=== PATIENT | female | born 1960 | race Caucasian/White ===

== ENCOUNTER → 2016-10-13 | Outpatient (CLI) | payer BC ==
--- NOTE | 2016-10-25 11:28 | MM ---
Reason for exam: screening (asymptomatic). Last mammogram was performed 4 years and 3 months ago. History: Took hormonal contraceptives beginning at age 19. Physical Findings: A clinical breast exam by your physician is recommended on an annual basis and results should be correlated with mammographic findings. MG Screening Mammo w CAD Bilateral CC and MLO view(s) were taken. Prior study comparison: June 30, 2012, mammogram, performed at [facility]. September 10, 2010, mammogram, performed at [facility]. There are scattered fibroglandular densities. There is no discrete abnormality. ASSESSMENT: Negative, BI-RAD 1 RECOMMENDATION: Routine screening mammogram of both breasts in 1 year.
== END | disposition home or self-care (01) ==
LOC: RADMAMWWP 13:37
PROVIDERS: ATTEND Nurse Practitioner Family
DX: Z12.31 Encounter for screening mammogram for malignant neoplasm of breast (principal)

== ENCOUNTER → 2018-02-21 | Outpatient (CLI) | payer BC ==
--- NOTE | 2018-02-21 10:43 | BD ---
EXAMINATION TYPE: Axial Bone Density DATE OF EXAM: 02/21/2018 COMPARISON: NONE CLINICAL HISTORY: Postmenopausal female. Osteoporosis screening. Height: 62.7 IN Weight: 222 LBS RISK FACTORS HISTORY OF: Active: YES MEDICATIONS: Additional Medications: VIT D, LEXAPRO, WELLBUTRIN, MULTI VIT EXAM MEASUREMENTS: Bone mineral densitometry was performed using the [employer] System. Bone mineral density as measured about the Lumbar spine is: ----- L1-L4(G/cm2): 1.353 T Score Values are as follows: ----- L2: 0.5 ----- L3: 1.9 ----- L4: 1.9 ----- L1-L4: 1.4 Bone mineral density BASELINE Bone mineral density about the R hip (g/cm2): 0.780 Bone mineral density about the L hip (g/cm2): 0.727 T Score values are as follows: -----R Neck: -1.9 -----L Neck: -2.2 -----R Total: -0.8 -----L Total: -1.0 Bone mineral density BASELINE IMPRESSION: Osteopenia (T Score between -2.5 and -1). There is slightly increased risk of fracture and the patient may be considered for treatment. Re-Screen 2-5 years. NOTE: T-SCORE=SD OF THE YOUNG ADULT MEAN.
--- NOTE | 2018-02-23 08:03 | MM ---
Reason for exam: screening (asymptomatic). Last mammogram was performed 1 year and 4 months ago. History: Patient is postmenopausal. Took hormonal contraceptives beginning at age 19. Physical Findings: A clinical breast exam by your physician is recommended on an annual basis and results should be correlated with mammographic findings. MG Screening Mammo w CAD Bilateral CC and MLO view(s) were taken. Prior study comparison: October 13, 2016, bilateral MG screening mammo w CAD. June 30, 2012, mammogram, performed at [facility]. There are scattered fibroglandular densities. No suspicious abnormality. No significant changes when compared with prior studies. ASSESSMENT: Negative, BI-RAD 1 RECOMMENDATION: Routine screening mammogram of both breasts in 1 year.
== END | disposition home or self-care (01) ==
LOC: RADMAMWWP 07:50
PROVIDERS: ATTEND Family Medicine
DX: Z12.31 Encounter for screening mammogram for malignant neoplasm of breast (principal); M85.80 Other specified disorders of bone density and structure, unspecified site
CPT/HCPCS: 77067; 77080

== ENCOUNTER 2018-03-29 09:32 | Day surgery (SDC) | payer BC ==
[2018-03-27 16:07] VITALS: BMI 41.3
--- NOTE | 2018-03-29 07:57 | P.GSHP ---
History of Present Illness H&P Date: 03/29/18 CHIEF COMPLAINT: GERD and colon screen HISTORY OF PRESENT ILLNESS: The patient is a 57-year-old female who presents with gastroesophageal reflux disease and need for colon screen. Upper and lower endoscopy were offered for further evaluation and management. PAST MEDICAL HISTORY: Please see list. PAST SURGICAL HISTORY: Please see list. MEDICATIONS: Please see list. ALLERGIES: Please see list. SOCIAL HISTORY: No illicit drug use FAMILY HISTORY: No reports of Crohn disease or ulcerative colitis. REVIEW OF ORGAN SYSTEMS: CONSTITUTIONAL: No reports of fevers or chills. GI: Denies any blood in stools or constipation. PHYSICAL EXAM: VITAL SIGNS: Stable GENERAL: Well-developed pleasant in no acute distress. HEENT: No scleral icterus. Extraocular movements grossly intact. Moist buccal mucosa. NECK: Supple without lymphadenopathy. CHEST: Unlabored respirations. Equal bilateral excursions. CARDIOVASCULAR: Regular rate and rhythm. Distal 2+ pulses. ABDOMEN: Soft, nondistended. MUSCULOSKELETAL: No clubbing, cyanosis, or edema. ASSESSMENT: 1. Gastroesophageal reflux disease 2. Colon screen. PLAN: 1. Recommend proceeding with an upper and lower endoscopy Past Medical History Past Medical History: GERD/Reflux, Hypertension, Osteoarthritis (OA), Sleep Apnea/CPAP/BIPAP Additional Past Medical History / Comment(s): HX: H. Pylori, iron deficiency anemia (HX OF IRON TRANSFUSIONS), SEASONAL ALLERGIES, USES C-PAP MACHINE, PAST HX OF HTN (NO CURRENT MEDS), BACK PAIN, ARTHRITIS NECK, JOINT PAIN. History of Any Multi-Drug Resistant Organisms: None Reported Past Surgical History: Bariatric Surgery, Cholecystectomy, Uterine Ablation Additional Past Surgical History / Comment(s): 07/07/15 Lap Naima-En-Y gastric bypass with EGD and Excision benign lesion abdominal wall. , lap band 2006, band removed 04/04/2015, LEFT rotator cuff surgery. Past Anesthesia/Blood Transfusion Reactions: Family History of Problems w/ Anesthesia, Motion Sickness, Postoperative Nausea & Vomiting (PONV) Additional Past Anesthesia/Blood Transfusion Reaction / Comment(s): Pt has recieved blood before without reaction. daughter= ponv Past Psychological History: Anxiety, Depression Additional Psychological History / Comment(s): . Smoking Status: Never smoker Past Alcohol Use History: None Reported Past Drug Use History: None Reported - Past Family History Mother Family Medical History: Deep Vein Thrombosis (DVT) Additional Family Medical History / Comment(s): RYGB done and from pneumonia after procedure at age 51, Father Family Medical History: Cancer Additional Family Medical History / Comment(s): Father of skin cancer at the age of 72 Medications and Allergies Home Medications Medication Instructions Recorded Confirmed Type Ergocalciferol [Vitamin D2 50,000 unit PO Q7D #12 cap 06/04/16 03/27/18 Rx (DRISDOL)] Escitalopram [Lexapro] 20 mg PO DAILY 03/27/18 03/27/18 History Ibuprofen [Motrin Ib] 400 mg PO DIRECTED PRN 03/27/18 03/27/18 History buPROPion HCL [Wellbutrin SR] 200 mg PO BID 03/27/18 03/27/18 History Allergies Allergy/AdvReac Type Severity Reaction Status Date / Time No Known Allergies Allergy Verified 03/27/18 15:44
[~2018-03-29 09:32] MED LIST: LACTATED RINGERS 1,000 ML IV SCH; LIDOCAINE 1% 20 ML VIAL (10MG/ML) FOR IV START INTRADERMA PRN; MIDAZOLAM 2 MG/2 ML VIAL IV PRN
[2018-03-29] MEDS ORDERED: LIDOCAINE 1% INJ 10MG/ML (20 ML MDV) ONE (12:15)
[2018-03-29] MEDS ORDERED: PROPOFOL 10 MG/ML 20 ML VIAL IV ONE (12:15)
[2018-03-29 12:16] VITALS: TEMP 98.7
--- NOTE | 2018-03-29 12:28 | P.PCN ---
Date of Procedure: 03/29/18 Description of Procedure: PREOPERATIVE DIAGNOSES: 1. History of gastric bypass 2. Gastroesophageal reflux disease POSTOPERATIVE DIAGNOSES: 1. History of gastric bypass 2. Gastroesophageal reflux disease PROCEDURE PERFORMED: Esophagogastrojejunoscopy. SURGEON: Jaja Stiles MD ANESTHESIA: MAC. INDICATIONS: The patient is a 57-year-old male with prior history of Naima-en-Y gastric bypass. With her history of Naima-en-Y gastric bypass, upper endoscopy was offered for further evaluation and management. DESCRIPTION: Patient was brought to the endoscopy suite and laid in the left lateral decubitus position. After adequate IV sedation, a bite block was placed. An Olympus gastroscope was passed along the posterior oropharynx down to the distal esophagus where the squamocolumnar junction was found at approximately 38 cm from the incisors. His anastomosis was found at 42 cm, consistent with approximately 5 cm gastric pouch. The scope was advanced 60 cm from the incisors. No evidence of foreign body was found. No evidence of active gastrojejunal ulcerations were encountered. The GI tract was desufflated. The patient tolerated the procedure well. FINDINGS: 1. No acute gastrojejunal ulceration. 2. No foreign body found along the anastomosis. PLAN: 1. Recommend upper endoscopy as needed.
--- NOTE | 2018-03-29 12:42 | P.PCN ---
Date of Procedure: 03/29/18 Description of Procedure: PREOPERATIVE DIAGNOSIS: Personal history of colon polyp POSTOPERATIVE DIAGNOSIS: Personal history of colon polyp OPERATION: Colonoscopy to the ileocecal valve and appendiceal orifice. SURGEON: Jaja Stiles MD. ANESTHESIA: MAC. INDICATIONS: The patient is a 57-year-old female who presents for colonoscopy screening. Last colonoscopy was 5 years ago. She has history of polyps. Benefits and risks were described and informed consent was obtained. DESCRIPTION OF PROCEDURE: The patient had undergone Gatorade, MiraLAX and Dulcolax prep. She had been brought into the operating room and laid in the left lateral decubitus position. After adequate intravenous sedation, the rectum was examined with 2% lidocaine jelly. External hemorrhoids were encountered. The rectal tone was within normal limits. No lesions were palpated in the rectal vault. An Olympus colonoscope was advanced until the ileocecal valve and appendiceal orifice were clearly viewed. The prep was excellent with clear visualization of the mucosal folds. The scope was removed with visualization of each mucosal fold. No scattered diverticulosis was encountered. No colonic polyps were found. No evidence of focal colitis was found. Retroflexion of the scope demonstrated no internal hemorrhoids without active bleeding or inflammation. The colon was desufflated. The patient had tolerated the procedure well. Withdrawal time was over 6 minutes. FINDINGS: No internal hemorrhoids External prolapsed hemorrhoids. No arteriovenous malformations. No adenomatous polyps. No sigmoid diverticulosis No focal colitis. RECOMMENDATIONS: Lower endoscopy in 5 years, 2022 Plan - Discharge Summary New Discharge Prescriptions: No Action Ergocalciferol [Vitamin D2 (DRISDOL)] 50,000 unit PO Q7D #12 cap buPROPion HCL [Wellbutrin SR] 200 mg PO BID Escitalopram [Lexapro] 20 mg PO DAILY Ibuprofen [Motrin Ib] 400 mg PO DIRECTED PRN PRN Reason: Pain Discharge Medication List Ergocalciferol [Vitamin D2 (DRISDOL)] 50,000 unit PO Q7D #12 cap 06/04/16 [Rx] Escitalopram [Lexapro] 20 mg PO DAILY 03/27/18 [History] Ibuprofen [Motrin Ib] 400 mg PO DIRECTED PRN 03/27/18 [History] buPROPion HCL [Wellbutrin SR] 200 mg PO BID 03/27/18 [History]
[2018-03-29 13:04] VITALS: BP 133/88; PULSE 67; RESP 16
== END 2018-03-29 13:20 | disposition home or self-care (01) ==
LOC: ORWHC2ENDO 09:32
PROVIDERS: ATTEND Surgery Plastic and Reconstructive Surgery
DX: Z12.11 Encounter for screening for malignant neoplasm of colon (principal); K64.8 Other hemorrhoids; Z86.010 Personal history of colon polyps; Z98.84 Bariatric surgery status; K21.9 Gastro-esophageal reflux disease without esophagitis; I10 Essential (primary) hypertension; M19.90 Unspecified osteoarthritis, unspecified site; G47.33 Obstructive sleep apnea (adult) (pediatric); Z99.89 Dependence on other enabling machines and devices; F41.9 Anxiety disorder, unspecified; F32.9 Major depressive disorder, single episode, unspecified
CPT/HCPCS: 43235; J2001; J2704; G0105

== ENCOUNTER 2018-05-19 16:36 | Emergency (ER) | payer BC ==
[2018-05-19 16:38] VITALS: BP 154/86; PULSE 77; RESP 18; TEMP 97.6
[2018-05-19] MEDS ORDERED: SODIUM CHLORIDE 0.9% 1,000 ML IV STA (16:42)
--- NOTE | 2018-05-19 16:54 | ED ---
General Adult HPI - General Chief complaint: Shortness of Breath Stated complaint: Chest pain Time Seen by Provider: 05/19/18 16:42 Source: patient, RN notes reviewed, old records reviewed Mode of arrival: ambulatory Limitations: no limitations - History of Present Illness Initial comments: This is a 49-year-old female the ER for evaluation. Patient resents today for evaluation regarding palpitations and shortness of breath. Patient has had shortness of breath for long-standing. She was seen in her doctor's office today and sent to ER for evaluation. Medical history includes hypertension. No recent travel history no sick contacts no fevers cough or congestion. Patient denies current shortness of breath or chest pain. A she is currently without complaint. - Related Data Home Medications Medication Instructions Recorded Confirmed buPROPion [Wellbutrin] 150 mg PO BID 05/19/18 05/19/18 Allergies Allergy/AdvReac Type Severity Reaction Status Date / Time No Known Allergies Allergy Verified 05/19/18 16:43 Review of Systems ROS Statement: Those systems with pertinent positive or pertinent negative responses have been documented in the HPI. ROS Other: All systems not noted in ROS Statement are negative. Past Medical History Past Medical History: GERD/Reflux, Hypertension, Osteoarthritis (OA), Sleep Apnea/CPAP/BIPAP Additional Past Medical History / Comment(s): HX: H. Pylori, iron deficiency anemia (HX OF IRON TRANSFUSIONS), SEASONAL ALLERGIES, USES C-PAP MACHINE, PAST HX OF HTN (NO CURRENT MEDS), BACK PAIN, ARTHRITIS NECK, JOINT PAIN. History of Any Multi-Drug Resistant Organisms: None Reported Past Surgical History: Bariatric Surgery, Cholecystectomy, Uterine Ablation Additional Past Surgical History / Comment(s): 07/07/15 Lap Naima-En-Y gastric bypass with EGD and Excision benign lesion abdominal wall. , lap band 2006, band removed 04/04/2015, LEFT rotator cuff surgery. Past Anesthesia/Blood Transfusion Reactions: Family History of Problems w/ Anesthesia, Motion Sickness, Postoperative Nausea & Vomiting (PONV) Additional Past Anesthesia/Blood Transfusion Reaction / Comment(s): Pt has recieved blood before without reaction. daughter= ponv Past Psychological History: Anxiety, Depression Smoking Status: Never smoker Past Alcohol Use History: None Reported Past Drug Use History: None Reported - Past Family History Mother Family Medical History: Deep Vein Thrombosis (DVT) Additional Family Medical History / Comment(s): RYGB done and from pneumonia after procedure at age 51, Father Family Medical History: Cancer Additional Family Medical History / Comment(s): Father of skin cancer at the age of 72 General Exam Limitations: no limitations General appearance: alert, in no apparent distress Head exam: Present: atraumatic, normocephalic, normal inspection Eye exam: Present: normal appearance, PERRL, EOMI. Absent: scleral icterus, conjunctival injection, periorbital swelling ENT exam: Present: normal exam, mucous membranes moist Neck exam: Present: normal inspection. Absent: tenderness, meningismus, lymphadenopathy Respiratory exam: Present: normal lung sounds bilaterally. Absent: respiratory distress, wheezes, rales, rhonchi, stridor Cardiovascular Exam: Present: regular rate, normal rhythm, normal heart sounds. Absent: systolic murmur, diastolic murmur, rubs, gallop, clicks GI/Abdominal exam: Present: soft, normal bowel sounds. Absent: distended, tenderness, guarding, rebound, rigid Extremities exam: Present: normal inspection, full ROM, normal capillary refill. Absent: tenderness, pedal edema, joint swelling, calf tenderness Back exam: Present: normal inspection Neurological exam: Present: alert, oriented X3, CN II-XII intact Psychiatric exam: Present: normal affect, normal mood Skin exam: Present: warm, dry, intact, normal color. Absent: rash Course Vital Signs 05/19/18 16:36 Temperature 97.6 F Pulse Rate 77 Respiratory 18 Rate Blood Pressure 154/86 O2 Sat by Pulse 99 Oximetry - Reevaluation(s) Reevaluation #1: 05/19/18 17:52 Using x-ray, patient is refusing further testing, patient would like to be discharged home EKG Findings - EKG Comments: EKG Findings:: EKG shows NSR 76 VA 164 QRS 88 QTC 454 Medical Decision Making - Medical Decision Making 57 female the ER with palpitations sent from doctor's office, patient currently asymptomatic no chest pain or shortness of breath. States she saw her doctor for shortness of breath today. Patient's refusing to wait for lab values here at this time, she refuses x-ray and would like to be discharged home - Lab Data Result diagrams: 05/19/18 17:07 Lab Results 05/19/18 Range/Units 17:07 WBC 6.8 (3.8-10.6) k/uL RBC 5.06 (3.80-5.40) m/uL Hgb 14.6 (11.4-16.0) gm/dL Hct 44.4 (34.0-46.0) % MCV 87.7 (80.0-100.0) fL MCH 28.8 (25.0-35.0) pg MCHC 32.8 (31.0-37.0) g/dL RDW 13.7 (11.5-15.5) % Plt Count 211 (150-450) k/uL Neutrophils % 58 % Lymphocytes % 30 % Monocytes % 6 % Eosinophils % 4 % Basophils % 1 % Neutrophils # 3.9 (1.3-7.7) k/uL Lymphocytes # 2.0 (1.0-4.8) k/uL Monocytes # 0.4 (0-1.0) k/uL Eosinophils # 0.3 (0-0.7) k/uL Basophils # 0.1 (0-0.2) k/uL Disposition Clinical Impression: Palpitations Disposition: HOME SELF-CARE Condition: Good Instructions: Heart Palpitations (ED) Is patient prescribed a controlled substance at d/c from ED?: No Referrals: Cat Dougherty III, MD [Primary Care Provider] - 1-2 days
[2018-05-19 17:46] LABS: Basophils # (A) 0.1 k/uL (0-0.2); Basophils % (A) 1 %; Eosinophils # (A) 0.3 k/uL (0-0.7); Eosinophils % (A) 4 %; HCT 44.4 % (34.0-46.0); HGB 14.6 gm/dL (11.4-16.0); Lymphocytes % (A) 30 %; MCH 28.8 pg (25.0-35.0); MCHC 32.8 g/dL (31.0-37.0); MCV 87.7 fL (80.0-100.0); Mean Platelet Volume 7.9; Monocytes # (A) 0.4 k/uL (0-1.0); Monocytes % (A) 6 %; Neutrophils # (A) 3.9 k/uL (1.3-7.7); Neutrophils % (A) 58 %; Platelet Count 211 k/uL (150-450); RBC 5.06 m/uL (3.80-5.40); RDW 13.7 % (11.5-15.5); WBC 6.8 k/uL (3.8-10.6)
[2018-05-19 18:03] LABS: Partial Thromboplastin Time 22.5 sec (22.0-30.0); Prothrombin Time 9.5 sec (9.0-12.0)
[2018-05-19 18:05] LABS: ALT 37 U/L (9-52); AST 44 U/L (14-36); Albumin 3.8 g/dL (3.5-5.0); Alkaline Phosphatase 79 U/L (38-126); Anion Gap 9 mmol/L; Blood Urea Nitrogen 10 mg/dL (7-17); Calcium 9.4 mg/dL (8.4-10.2); Carbon Dioxide 23 mmol/L (22-30); Chloride 109 mmol/L (98-107); Glucose 93 mg/dL (74-99); Magnesium 2.2 mg/dL (1.6-2.3); Phosphorus 3.9 mg/dL (2.5-4.5); Potassium 4.1 mmol/L (3.5-5.1); Sodium 141 mmol/L (137-145); Total Bilirubin 0.5 mg/dL (0.2-1.3); Total Protein 6.2 g/dL (6.3-8.2)
[2018-05-19 18:11] LABS: Creatine Kinase 72 U/L (30-135)
[2018-05-19 18:24] LABS: Creatine Kinase MB 1.1 ng/mL (0.0-2.4); Troponin I <0.012 ng/mL (0.000-0.034)
== END 2018-05-19 18:05 | disposition home or self-care (01) ==
LOC: EC 16:36
DX: R00.2 Palpitations (principal); F32.9 Major depressive disorder, single episode, unspecified; D50.9 Iron deficiency anemia, unspecified; G47.30 Sleep apnea, unspecified; Z79.899 Other long term (current) drug therapy; Z99.89 Dependence on other enabling machines and devices
CPT/HCPCS: 36415; 80053; 82550; 82553; 83735; 84100; 84443; 84484; 85025; 85610; 85730; 93005; 96360; 99285

== ENCOUNTER 2018-08-12 14:02 | Emergency (ER) | payer BC ==
[2018-08-12 14:09] VITALS: RESP 18
[2018-08-12] MEDS ORDERED: SODIUM CHLORIDE 0.9% 1,000 ML IV STA (14:42)
--- NOTE | 2018-08-12 14:52 | ED ---
General Adult HPI - General Chief complaint: Syncope Stated complaint: SYNCOPAL EPISODE Time Seen by Provider: 08/12/18 14:05 Source: EMS, RN notes reviewed Mode of arrival: EMS Limitations: no limitations - History of Present Illness Initial comments: This is a 57-year-old female who presents emergency Department with a past medical history significant for high blood pressure. Patient states she gave plasma this morning and about 2 hours later she was in the store getting very hot with her coat on and she states was very crowded she felt a little lightheaded and next thing she knows people were crowded around her. Patient states she never had any chest pain never had any difficulty breathing or shortness of breath. Patient denies any recent fever chills or cough. Patient states she had no palpitations. Patient states she's given plasma before not had any problems. Patient denies any abdominal pain patient denies nausea vomiting diarrhea. Patient denies being a headache currently. - Related Data Home Medications Medication Instructions Recorded Confirmed Multivitamins, Thera [Multivitamin 1 tab PO DAILY 08/12/18 08/12/18 (formulary)] OXcarbazepine [Trileptal] 300 mg PO BID 08/12/18 08/12/18 Sertraline [Zoloft] 100 mg PO DAILY 08/12/18 08/12/18 amLODIPine [Norvasc] 5 mg PO DAILY 08/12/18 08/12/18 Allergies Allergy/AdvReac Type Severity Reaction Status Date / Time No Known Allergies Allergy Verified 08/12/18 14:22 Review of Systems ROS Statement: Those systems with pertinent positive or pertinent negative responses have been documented in the HPI. ROS Other: All systems not noted in ROS Statement are negative. Past Medical History Past Medical History: GERD/Reflux, Hypertension, Osteoarthritis (OA), Sleep Apnea/CPAP/BIPAP Additional Past Medical History / Comment(s): HX: H. Pylori, iron deficiency anemia (HX OF IRON TRANSFUSIONS), SEASONAL ALLERGIES, USES C-PAP MACHINE, PAST HX OF HTN (NO CURRENT MEDS), BACK PAIN, ARTHRITIS NECK, JOINT PAIN. History of Any Multi-Drug Resistant Organisms: None Reported Past Surgical History: Bariatric Surgery, Cholecystectomy, Uterine Ablation Additional Past Surgical History / Comment(s): 07/07/15 Lap Naima-En-Y gastric bypass with EGD and Excision benign lesion abdominal wall. , lap band 2006, band removed 04/04/2015, LEFT rotator cuff surgery. Past Anesthesia/Blood Transfusion Reactions: Family History of Problems w/ Anesthesia, Motion Sickness, Postoperative Nausea & Vomiting (PONV) Additional Past Anesthesia/Blood Transfusion Reaction / Comment(s): Pt has recieved blood before without reaction. daughter= ponv Past Psychological History: Anxiety, Bipolar, Depression Smoking Status: Never smoker Past Alcohol Use History: None Reported Past Drug Use History: None Reported - Past Family History Mother Family Medical History: Deep Vein Thrombosis (DVT) Additional Family Medical History / Comment(s): RYGB done and from pneumonia after procedure at age 51, Father Family Medical History: Cancer Additional Family Medical History / Comment(s): Father of skin cancer at the age of 72 General Exam - General Exam Comments Initial Comments: GENERAL: Patient is well-developed and well-nourished. Patient is nontoxic and well- hydrated and is in mild distress. ENT: Neck is soft and supple. No significant lymphadenopathy is noted. Oropharynx is clear. Moist mucous membranes. Neck has full range of motion without eliciting any pain. EYES: The sclera were anicteric and conjunctiva were pink and moist. Extraocular movements were intact and pupils were equal round and reactive to light. Eyelids were unremarkable. PULMONARY: Unlabored respirations. Good breath sounds bilaterally. No audible rales rhonchi or wheezing was noted. CARDIOVASCULAR: There is a regular rate and rhythm without any murmurs gallops or rubs. ABDOMEN: Soft and nontender with normal bowel sounds. No palpable organomegaly was noted. There is no palpable pulsatile mass. SKIN: Skin is clear with no lesions or rashes and otherwise unremarkable. NEUROLOGIC: Patient is alert and oriented x3. Cranial nerves II through XII are grossly intact. Motor and sensory are also intact. Normal speech, volume and content. Symmetrical smile. MUSCULOSKELETAL: Normal extremities with adequate strength and full range of motion. No lower extremity swelling or edema. No calf tenderness. LYMPHATICS: No significant lymphadenopathy is noted PSYCHIATRIC: Normal psychiatric evaluation. Limitations: no limitations Course Vital Signs 08/12/18 08/12/18 08/12/18 14:05 14:52 15:00 Temperature 98.5 F Pulse Rate 75 70 Pulse Rate [ 80 Right Sitting] Pulse Rate [ 85 Right Standing] Pulse Rate [ 70 Right Supine] Respiratory 18 18 18 Rate Blood Pressure 116/71 111/78 Blood Pressure 114/85 [Right Arm Sitting] Blood Pressure 111/78 [Right Arm Standing] Blood Pressure 105/73 [Right Arm Supine] O2 Sat by Pulse 96 98 96 Oximetry Medical Decision Making - Medical Decision Making EKG shows normal sinus rhythm at 77 bpm MS interval is on a 40 QRS is 90 QT interval 420 QTC is 475 per patient's EKG shows no ST segment elevation or depression or T wave abnormalities are noted. Patient had orthostatics done in the emergency department and she was initially dizzy on standing. After the patient was given fluid in the department she was able to get up and ambulate without problem without any sense of dizziness. - Lab Data Result diagrams: 08/12/18 14:22 08/12/18 14:22 Lab Results 08/12/18 08/12/18 08/12/18 Range/Units 14:22 14:22 14:22 WBC 7.3 (3.8-10.6) k/uL RBC 5.19 (3.80-5.40) m/uL Hgb 14.6 (11.4-16.0) gm/dL Hct 45.8 (34.0-46.0) % MCV 88.2 (80.0-100.0) fL MCH 28.1 (25.0-35.0) pg MCHC 31.9 (31.0-37.0) g/dL RDW 13.7 (11.5-15.5) % Plt Count 223 (150-450) k/uL Neutrophils % 63 % Lymphocytes % 28 % Monocytes % 5 % Eosinophils % 2 % Basophils % 1 % Neutrophils # 4.7 (1.3-7.7) k/uL Lymphocytes # 2.0 (1.0-4.8) k/uL Monocytes # 0.4 (0-1.0) k/uL Eosinophils # 0.2 (0-0.7) k/uL Basophils # 0.0 (0-0.2) k/uL PT (9.0-12.0) sec INR (<1.2) APTT (22.0-30.0) sec Sodium 141 (137-145) mmol/L Potassium 3.7 (3.5-5.1) mmol/L Chloride 112 H (98-107) mmol/L Carbon Dioxide 20 L (22-30) mmol/L Anion Gap 9 mmol/L BUN 9 (7-17) mg/dL Creatinine 0.85 (0.52-1.04) mg/dL Est GFR (CKD-EPI)AfAm 88 (>60 ml/min/1.73 sqM) Est GFR (CKD-EPI)NonAf 76 (>60 ml/min/1.73 sqM) Glucose 131 H (74-99) mg/dL Calcium 8.8 (8.4-10.2) mg/dL Magnesium 2.1 (1.6-2.3) mg/dL Total Bilirubin 0.3 (0.2-1.3) mg/dL AST 25 (14-36) U/L ALT 35 (9-52) U/L Alkaline Phosphatase 70 (38-126) U/L Total Creatine Kinase 57 (30-135) U/L CK-MB (CK-2) 0.6 (0.0-2.4) ng/mL CK-MB (CK-2) Rel Index 1.1 Troponin I <0.012 (0.000-0.034) ng/mL Total Protein 5.2 L (6.3-8.2) g/dL Albumin 3.1 L (3.5-5.0) g/dL 08/12/ Range/Units 14:22 WBC (3.8-10.6) k/uL RBC (3.80-5.40) m/uL Hgb (11.4-16.0) gm/dL Hct (34.0-46.0) % MCV (80.0-100.0) fL MCH (25.0-35.0) pg MCHC (31.0-37.0) g/dL RDW (11.5-15.5) % Plt Count (150-450) k/uL Neutrophils % % Lymphocytes % % Monocytes % % Eosinophils % % Basophils % % Neutrophils # (1.3-7.7) k/uL Lymphocytes # (1.0-4.8) k/uL Monocytes # (0-1.0) k/uL Eosinophils # (0-0.7) k/uL Basophils # (0-0.2) k/uL PT 9.9 (9.0-12.0) sec INR 0.9 (<1.2) APTT 20.9 L (22.0-30.0) sec Sodium (137-145) mmol/L Potassium (3.5-5.1) mmol/L Chloride (98-107) mmol/L Carbon Dioxide (22-30) mmol/L Anion Gap mmol/L BUN (7-17) mg/dL Creatinine (0.52-1.04) mg/dL Est GFR (CKD-EPI)AfAm (>60 ml/min/1.73 sqM) Est GFR (CKD-EPI)NonAf (>60 ml/min/1.73 sqM) Glucose (74-99) mg/dL Calcium (8.4-10.2) mg/dL Magnesium (1.6-2.3) mg/dL Total Bilirubin (0.2-1.3) mg/dL AST (14-36) U/L ALT (9-52) U/L Alkaline Phosphatase (38-126) U/L Total Creatine Kinase (30-135) U/L CK-MB (CK-2) (0.0-2.4) ng/mL CK-MB (CK-2) Rel Index Troponin I (0.000-0.034) ng/mL Total Protein (6.3-8.2) g/dL Albumin (3.5-5.0) g/dL Disposition Clinical Impression: Orthostatic syncope Disposition: HOME SELF-CARE Condition: Good Instructions: Syncope (ED) Is patient prescribed a controlled substance at d/c from ED?: No Referrals: Cat Dougherty III, MD [Primary Care Provider] - 1-2 days Time of Disposition: 16:55
[2018-08-12 15:07] LABS: Basophils % (A) 1 %; Eosinophils # (A) 0.2 k/uL (0-0.7); Eosinophils % (A) 2 %; HCT 45.8 % (34.0-46.0); HGB 14.6 gm/dL (11.4-16.0); Lymphocytes % (A) 28 %; MCH 28.1 pg (25.0-35.0); MCHC 31.9 g/dL (31.0-37.0); MCV 88.2 fL (80.0-100.0); Mean Platelet Volume 7.4; Monocytes # (A) 0.4 k/uL (0-1.0); Monocytes % (A) 5 %; Neutrophils # (A) 4.7 k/uL (1.3-7.7); Neutrophils % (A) 63 %; Platelet Count 223 k/uL (150-450); RBC 5.19 m/uL (3.80-5.40); RDW 13.7 % (11.5-15.5); WBC 7.3 k/uL (3.8-10.6)
[2018-08-12 15:20] LABS: Albumin 3.1 g/dL (3.5-5.0); Calcium 8.8 mg/dL (8.4-10.2); Magnesium 2.1 mg/dL (1.6-2.3); Potassium 3.7 mmol/L (3.5-5.1); Total Bilirubin 0.3 mg/dL (0.2-1.3); Total Protein 5.2 g/dL (6.3-8.2)
[2018-08-12 15:24] LABS: INR 0.9 (<1.2)
[2018-08-12 15:25] LABS: Prothrombin Time 9.9 sec (9.0-12.0)
[2018-08-12 15:27] LABS: Partial Thromboplastin Time 20.9 sec (22.0-30.0)
[2018-08-12 15:31] LABS: Creatine Kinase 57 U/L (30-135)
[2018-08-12 15:42] LABS: Creatine Kinase MB 0.6 ng/mL (0.0-2.4); Troponin I <0.012 ng/mL (0.000-0.034)
--- NOTE | 2018-08-12 15:50 | XR ---
EXAMINATION TYPE: XR chest 2V DATE OF EXAM: 08/12/2018 COMPARISON: NONE HISTORY: Chest pain TECHNIQUE: Frontal and lateral views of the chest are obtained. FINDINGS: There is no heart failure nor confluent pneumonic infiltrate. Costophrenic angles are bright r. There are chest leads. Bony thorax is intact. IMPRESSION: No active cardiopulmonary disease. Normal heart.
[2018-08-12 17:17] VITALS: BP 116/79; PULSE 69; TEMP 97.9
== END 2018-08-12 17:15 | disposition home or self-care (01) ==
LOC: EC 14:02
DX: R55 Syncope and collapse (principal); R42 Dizziness and giddiness; I10 Essential (primary) hypertension; G47.30 Sleep apnea, unspecified; Z99.89 Dependence on other enabling machines and devices; D50.9 Iron deficiency anemia, unspecified; F31.9 Bipolar disorder, unspecified; F41.9 Anxiety disorder, unspecified; Z79.899 Other long term (current) drug therapy; Z90.49 Acquired absence of other specified parts of digestive tract
CPT/HCPCS: 36415; 71046; 80053; 82550; 82553; 83735; 84484; 85025; 85610; 85730; 93005; 96360; 99285

== ENCOUNTER → 2019-07-05 | Outpatient (CLI) | payer BC ==
--- NOTE | 2019-07-05 22:37 | CONS ---
CONSULTATION DATE OF SERVICE: 07/05/2019 This patient is a 58-year-old lady who has [facility] for obstructive sleep apnea-hypopnea syndrome. HISTORY OF PRESENT ILLNESS/SLEEP-WAKE EVALUATION: Patient was diagnosed with obstructive sleep apnea 25 years ago and was started on treatment with CPAP at that time, but she quit using CPAP because it was not comfortable for her. She quit using CPAP about 5 years ago. After starting to use the treatment with CPAP, the patient underwent several procedures for losing weight which included lap band surgery and gastric bypass surgery; she did lose a significant amount of weight at first, but then she gained it back. At present her sleep schedule is from 9:30 p.m. until 6:30 or 7 a.m. on working days, and until 7 or 7:30 a.m. on weekends. Sometimes she has problems with falling asleep, although no TV in bedroom. She usually sleeps on the side position, with snoring and awakenings from sleep 2 times with nocturia. No history of hypnagogic hallucinations, sleep paralysis or cataplexy. During the day the patient has problems with memory, depression and anxiety. [place] Sleepiness Scale is 7. PAST MEDICAL HISTORY: Past medical history is positive for bipolar with anxiety and depression, hypertension, history of anemia. PAST SURGICAL HISTORY: 1. Cholecystectomy. 2. Surgery for left rotator cuff problems. 3. Lap band surgery 1997. 4. Gastric bypass surgery 2011 with of lap band in 2011. MEDICATIONS: 1. Wellbutrin. 2. Abilify. 3. Norvasc. 4. Aspirin. SOCIAL HISTORY: Negative for smoking or using alcohol. FAMILY HISTORY: Hypertension, arthritis, sinus problems, pneumonia, sleep apnea, snoring, anemia, mental illness. REVIEW OF SYSTEMS: Awakenings from sleep, episodes of anxiety and depression during the day. PHYSICAL EXAMINATION: GENERAL: A pleasant lady without distress. VITAL SIGNS: BP 115/79, HR 80, RR 16, height 5 feet 2-1/2 inches, weight 197 pounds. Body mass index 35.4, temperature 97.5, oxygen saturation at room air 100%. HEENT: PERRLA, EOMI. Evaluation of oropharynx showed tongue protrudes midline. Extremely low position of soft palate. Mallampati IV. NECK: Supple. No JVD. Thyroid is not palpable. Wide neck; 16-1/2 inches in circumference. LUNGS: Clear to percussion and to auscultation. Good air exchange. No wheezing or rhonchi. HEART: S1, S2 regular. No murmurs, gallops or rubs. ABDOMEN: Slightly obese. EXTREMITIES: Tendency of swelling in ankles up to 1+. PROOF TESTER: Awake, alert, and oriented X3. Cranial nerves 2 to 7 intact. There is no fasciculation or atrophy. noted. No focal deficits observed. IMPRESSION: 1. Obstructive sleep apnea-hypopnea syndrome diagnosed by a sleep study 25 years ago. The patient did not have any sleep study since that time. She quit using her CPAP equipment 5 years ago. At present she wakes up from sleep with nocturia. She has extremely low position of soft palate, wide neck; obstructive sleep apnea-hypopnea syndrome. 2. Obesity; body mass index 35.4. 3. History of bipolar, anxiety and depression. 4. Hypertension. 5. Status post cholecystectomy. 6. Status post left rotator cuff surgery. 7. Status post lap band surgery in 1997 with reversal in 2011. 8. Status post gastric bypass surgery in 2011. 9. History of anemia. PLAN: 1. Polysomnography for evaluation of patient's breathing during sleep. 2. CPAP/BiPAP titration if sleep study confirms obstructive sleep apnea-hypopnea syndrome. 3. Preferable position during sleep on the side. 4. No driving if patient feels any sleepiness. 5. I will see patient for follow up visit to explain results of testing and following plan. Thank you very much for referring this patient for consultation. Sincerely, Yevgeniy Sams MD, PhD, FAASM Diplomat of [employer] Ems Educator of [facility] [place] MMODL / IJN: [id number] /
== END ==
LOC: SLEEP 15:50
PROVIDERS: ATTEND Internal Medicine
DX: G47.33 Obstructive sleep apnea (adult) (pediatric) (principal); E66.9 Obesity, unspecified; I10 Essential (primary) hypertension; Z90.49 Acquired absence of other specified parts of digestive tract; Z98.890 Other specified postprocedural states; Z86.2 Personal history of diseases of the blood and blood-forming organs and certain disorders involving the immune mechanism; Z68.35 Body mass index [BMI] 35.0-35.9, adult; Z86.59 Personal history of other mental and behavioral disorders; Z79.899 Other long term (current) drug therapy; Z79.82 Long term (current) use of aspirin
CPT/HCPCS: 99211

== ENCOUNTER → 2020-01-30 | Outpatient (CLI) | payer BC ==
--- NOTE | 2020-02-11 12:16 | EM ---
EVENT MONITOR DATE OF SERVICE: January 30, 2020. INDICATION: The patient was monitored for 7 days. The baseline rhythm seems to be sinus mechanism. The patient did have multiple episodes of what seems to be narrow complex tachycardia consistent with atrial tachycardia. Besides that, there is no ventricular ectopic events seen. No evidence of any sinus pause or sinus arrest. No symptoms reported. CONCLUSION: 1. This is a 7-day event monitor. 2. Sinus rhythm as a baseline mechanism. 3. The patient did have multiple episodes of narrow complex tachycardia consistent with atrial tachycardia. 4. No evidence of sinus pause or sinus arrest. 5. The patient reported no symptoms. MMODL / IJN: [id number] /
== END | disposition home or self-care (01) ==
LOC: RADECHMAIN 11:11
PROVIDERS: ATTEND Family Medicine
DX: R00.0 Tachycardia, unspecified (principal)
CPT/HCPCS: 93270

== ENCOUNTER → 2020-03-05 | Outpatient (CLI) | payer BC ==
--- NOTE | 2020-03-07 09:01 | MM ---
Reason for exam: screening (asymptomatic). Last mammogram was performed 2 years ago. History: Patient is postmenopausal. Took hormonal contraceptives for 2 years beginning at age 19. Physical Findings: A clinical breast exam by your physician is recommended on an annual basis and results should be correlated with mammographic findings. MG Screening Mammo w CAD Bilateral CC and MLO view(s) were taken. XCCL view(s) were taken of the left breast. Prior study comparison: February 21, 2018, bilateral MG screening mammo w CAD. October 13, 2016, bilateral MG screening mammo w CAD. There are scattered fibroglandular densities. No significant changes when compared with prior studies. ASSESSMENT: Negative, BI-RAD 1 RECOMMENDATION: Routine screening mammogram of both breasts in 1 year.
== END | disposition home or self-care (01) ==
LOC: RADMAMWWP 13:57
PROVIDERS: ATTEND Family Medicine
DX: Z12.31 Encounter for screening mammogram for malignant neoplasm of breast (principal)
CPT/HCPCS: 77067

== ENCOUNTER → 2020-09-10 | Outpatient (CLI) | payer BC | END | disposition home or self-care (01) | LOC: LABWHC1 08:52 | PROVIDERS: ATTEND Family Medicine | DX: R05 Cough (principal) | CPT/HCPCS: U0003; C9803; U0005 ==

== ENCOUNTER 2023-04-06 08:51 | Day surgery (SDC) | payer BC ==
[2023-03-31 12:04] VITALS: BMI 45.7
[~2023-04-06 08:51] MED LIST changes: +LIDOCAINE 1% (10MG/ML) FOR IV START INTRADERMA PRN; -LIDOCAINE 1% 20 ML VIAL (10MG/ML) FOR IV START INTRADERMA PRN; -MIDAZOLAM 2 MG/2 ML VIAL IV PRN
[2023-04-06] MEDS ORDERED: LACTATED RINGERS 1,000 ML IV ONE (09:10)
[2023-04-06] MEDS ORDERED: ONDANSETRON 4 MG/2 ML VIAL ONE ×2 (09:20→09:29)
[2023-04-06 09:23] VITALS: TEMP 98.2
[2023-04-06] MEDS ORDERED: ONDANSETRON 4 MG/2 ML VIAL IVP ONE (09:33)
[2023-04-06] MEDS ORDERED: LIDOCAINE 2% INJ 20 MG/ML (2 ML VIAL) ONE (09:46)
[2023-04-06] MEDS ORDERED: PROPOFOL 10 MG/ML 20 ML VIAL IV ONE (09:46)
--- NOTE | 2023-04-06 09:47 | P.GSHP ---
History of Present Illness H&P Date: 04/06/23 CHIEF COMPLAINT: GERD and colon screen HISTORY OF PRESENT ILLNESS: The patient is a 65-year-old female who presents with gastroesophageal reflux disease and need for colon screen. Upper and lower endoscopy were offered for further evaluation and management. PAST MEDICAL HISTORY: Please see list. PAST SURGICAL HISTORY: Please see list. MEDICATIONS: Please see list. ALLERGIES: Please see list. SOCIAL HISTORY: No illicit drug use FAMILY HISTORY: No reports of Crohn disease or ulcerative colitis. REVIEW OF ORGAN SYSTEMS: CONSTITUTIONAL: No reports of fevers or chills. GI: Denies any blood in stools or constipation. PHYSICAL EXAM: VITAL SIGNS: Stable GENERAL: Well-developed pleasant in no acute distress. HEENT: No scleral icterus. Extraocular movements grossly intact. Moist buccal mucosa. NECK: Supple without lymphadenopathy. CHEST: Unlabored respirations. Equal bilateral excursions. CARDIOVASCULAR: Regular rate and rhythm. Distal 2+ pulses. ABDOMEN: Soft, nondistended. MUSCULOSKELETAL: No clubbing, cyanosis, or edema. ASSESSMENT: 1. Gastroesophageal reflux disease 2. Colon screen. PLAN: 1. Recommend proceeding with an upper and lower endoscopy Past Medical History Past Medical History: GERD/Reflux, Hypertension, Osteoarthritis (OA), Sleep Apnea/CPAP/BIPAP Additional Past Medical History / Comment(s): HX: H. Pylori, iron deficiency anemia (HX OF IRON TRANSFUSIONS), SEASONAL ALLERGIES, USES C-PAP MACHINE, BACK PAIN, ARTHRITIS NECK, JOINT PAIN History of Any Multi-Drug Resistant Organisms: None Reported Past Surgical History: Bariatric Surgery, Cholecystectomy, Uterine Ablation Additional Past Surgical History / Comment(s): 07/07/15 Lap Naima-En-Y gastric bypass, Excision benign lesion abdominal wall, lap band 2006, band removed 04/04/2015, LEFT rotator cuff surgery Past Anesthesia/Blood Transfusion Reactions: Family History of Problems w/ Anesthesia, Motion Sickness, Postoperative Nausea & Vomiting (PONV) Additional Past Anesthesia/Blood Transfusion Reaction / Comment(s): Pt has recieved blood before without reaction. daughter= ponv Past Psychological History: Anxiety, Bipolar, Depression Additional Psychological History / Comment(s): . Smoking Status: Never smoker Past Alcohol Use History: None Reported Past Drug Use History: None Reported - Past Family History Mother Family Medical History: Deep Vein Thrombosis (DVT) Additional Family Medical History / Comment(s): RYGB done and from pneumonia after procedure at age 51, Father Family Medical History: Cancer Additional Family Medical History / Comment(s): Father of skin cancer at the age of 72 Medications and Allergies Home Medications Medication Instructions Recorded Confirmed Type Sertraline [Zoloft] 100 mg PO DAILY 08/12/18 04/06/23 History ARIPiprazole [Abilify] 15 mg PO DAILY 03/31/23 04/06/23 History Metoprolol Succinate [Toprol XL] 100 mg PO DAILY 03/31/23 04/06/23 History buPROPion [Wellbutrin] 150 mg PO BID 03/31/23 04/06/23 History Allergies Allergy/AdvReac Type Severity Reaction Status Date / Time No Known Allergies Allergy Verified 04/06/23 09:14 Surgical - Exam Vital Signs Temp Pulse Resp BP Pulse Ox 98.2 F 70 15 124/74 97 04/06/23 09:10 04/06/23 09:10 04/06/23 09:10 04/06/23 09:10 04/06/23 09:10
[2023-04-06 10:46] VITALS: RESP 16
[2023-04-06 11:02] VITALS: BP 143/69; PULSE 68
--- NOTE | 2023-04-06 23:08 | P.PCN ---
Date of Procedure: 04/06/23 Description of Procedure: PREOPERATIVE DIAGNOSIS: Colonoscopy screening. Personal history of colon polyp POSTOPERATIVE DIAGNOSIS: Colonoscopy screening. Sigmoid colon polyp Ascending colon polyp Poor prep OPERATION: Colonoscopy to the cecum, ileocecal valve and appendiceal orifice. SURGEON: Jaja Stiles MD. ANESTHESIA: MAC. INDICATIONS: The patient is a 62-year-old female who presents for colonoscopy screening. Last colonoscopy 5 years ago. Benefits and risks were described and informed consent was obtained. DESCRIPTION OF PROCEDURE: The patient had undergone Golytely prep. The patient had been brought into the operating room and laid in the left lateral decubitus position. After adequate intravenous sedation, the rectum was examined with 2% lidocaine jelly. External hemorrhoids were encountered. The rectal tone was within normal limits. No lesions were palpated in the rectal vault. An Olympus colonoscope was advanced until the cecum, ileocecal valve and appendiceal orifice were clearly viewed. The prep was poor of the ascending colon and fair for the rest of the colon. Abdominal wall pressure was used to advance a scope. No large scattered diverticulosis was encountered. Colonic polyps were found and unable retrieved due to poor prep. No evidence of focal colitis was found. Retroflexion of the scope demonstrated grade 3 internal hemorrhoids without active bleeding or inflammation. The colon was desufflated. The patient had tolerated the procedure well. Withdrawal time was over 6 minutes. FINDINGS: Aronchick preparation quality scale 3 (1-5) Internal hemorrhoids, grade 3 External prolapsed hemorrhoids, grade 3 No arteriovenous malformations. Colon polyps obscured by moderate solid stool limiting utility of scope No focal colitis. RECOMMENDATIONS: Lower endoscopy in 5 years with personal history of colon polyps. Recommend three-day colon prep Plan - Discharge Summary Discharge Rx Participant: No New Discharge Prescriptions: Continue Sertraline [Zoloft] 100 mg PO DAILY Metoprolol Succinate [Toprol XL] 100 mg PO DAILY ARIPiprazole [Abilify] 15 mg PO DAILY buPROPion [Wellbutrin] 150 mg PO BID Discharge Medication List Sertraline [Zoloft] 100 mg PO DAILY 08/12/18 [History] ARIPiprazole [Abilify] 15 mg PO DAILY 03/31/23 [History] Metoprolol Succinate [Toprol XL] 100 mg PO DAILY 03/31/23 [History] buPROPion [Wellbutrin] 150 mg PO BID 03/31/23 [History] [facility]Ref[facility] [place] [facility] [place] [facility]20[facility]23 2:00 pm Patient Instructions/Handouts: *Surgery [facility] - (Anesthesia) Discharge Instructions Outpatient Surgery, Esophageal Dilation (DC) Activity/Diet/Wound Care/Special Instructions: Repeat colonoscopy in 3 years, 2025 Discharge Disposition: HOME SELF-CARE
--- NOTE | 2023-04-06 23:11 | P.PCN ---
Date of Procedure: 04/06/23 Description of Procedure: PREOPERATIVE DIAGNOSIS: Dysphagia. Gastroesophageal reflux History of gastric bypass POSTOPERATIVE DIAGNOSIS: Gastrojejunal stricture with chronic ulcer without perforation OPERATION: Esophagogastrojejunoscopy with balloon dilatation from 15mm to 20 mm. SURGEON: Jaja Stiles MD ANESTHESIA: MAC. INDICATIONS: The patient is a 62-year-old female who presents with a history of dysphagia, including gastroesophageal reflux disease. Benefits and risks of the procedure were described. Informed consent was obtained. DESCRIPTION: The patient was brought into the endoscopy suite and laid in the left lateral decubitus position. After a timeout was confirmed, the procedure was initiated. An Olympus gastroscope was passed along the posterior oropharynx down to the distal esophagus where the squamocolumnar junction was unremarkable. The gastric pouch was entered. A gastrojejunal stricture of 15 mm was found as the adult gastroscope was 9.5 mm in size. A Prized balloon dilator was placed through the scope. Final insufflation up to 20 mm was performed with a total of 2 minutes. The scope was advanced up to 60 cm from the incisors into the Naima limb. The mucosa of the gastrojejunal anastomosis was intact. Chronic gastrojejunal marginal ulcer was encountered. No full-thickness injury was encountered. The GI tract was desufflated. The patient tolerated the procedure well. FINDINGS: Squamocolumnar junction unremarkable at 40 cm. Hill Grade A erosive esophagitis Stricture of approximately 15 mm encountered. Chronic gastrojejunal ulceration encountered. Successful balloon dilatation to 20 mm. RECOMMENDATIONS: Upper endoscopy as needed. Avoid NSAIDs Recommend omeprazole and Carafate for treatment
== END 2023-04-06 11:28 | disposition home or self-care (01) ==
LOC: ORWHC2ENDO 08:51
PROVIDERS: ATTEND Surgery Plastic and Reconstructive Surgery
DX: Z12.11 Encounter for screening for malignant neoplasm of colon (principal); K63.5 Polyp of colon; K64.4 Residual hemorrhoidal skin tags; K64.2 Third degree hemorrhoids; K21.00 Gastro-esophageal reflux disease with esophagitis, without bleeding; K56.609 Unspecified intestinal obstruction, unspecified as to partial versus complete obstruction; K28.7 Chronic gastrojejunal ulcer without hemorrhage or perforation; I10 Essential (primary) hypertension; M19.90 Unspecified osteoarthritis, unspecified site; Z86.010 Personal history of colon polyps; Z90.49 Acquired absence of other specified parts of digestive tract; Z98.84 Bariatric surgery status; Z83.2 Family history of diseases of the blood and blood-forming organs and certain disorders involving the immune mechanism; Z86.59 Personal history of other mental and behavioral disorders; Z79.899 Other long term (current) drug therapy
CPT/HCPCS: 45378; 43249; J2405; J2704; J2001

== ENCOUNTER → 2023-04-20 | Outpatient (CLI) | payer BC ==
--- NOTE | 2023-04-20 15:39 | US ---
EXAMINATION TYPE: US abdomen limited DATE OF EXAM: 04/20/2023 COMPARISON: NONE CLINICAL INDICATION: Female, 62 years old with history of R19.09 OTHER INTRA-ABDOMINAL; pt had gastri c bypass about 15 yrs ago and about 4 months ago she has a large soft tissue bulge at the gastric sca r; tender, gassy TECHNIQUE: Multiple sonographic images of the abdomen are obtained. FINDINGS: Scanned over the pt's large soft tissue palpable area in the midline abdomen. There is a 2.8 cm defect in the abdominal wall with peristalsing bowel seen flowing anterior to the abdominal wa ll. No visualized dilated bowel. Continuous bowel movement through this hernia was seen during real t minoo imaging. IMPRESSION: Anterior abdominal wall hernia containing bowel with defect measuring up to 2.8 cm at site of soft ti ssue bulge.
== END | disposition home or self-care (01) ==
LOC: RADUSWWP 14:40
PROVIDERS: ATTEND Surgery Plastic and Reconstructive Surgery
DX: K43.9 Ventral hernia without obstruction or gangrene (principal); R19.09 Other intra-abdominal and pelvic swelling, mass and lump; Z98.84 Bariatric surgery status
CPT/HCPCS: 76705

== ENCOUNTER → 2023-04-20 | Outpatient (CLI) | payer BC ==
[2023-04-20 14:06] VITALS: BP 126/86; PULSE 65; TEMP 97.9; BMI 44.7
--- NOTE | 2023-04-20 14:34 | P.BASOAP ---
Subjective Progress Note Date: 04/20/23 Needs EKG. US pending for hernia CT of the abdomen pending results Labs Back on track diet EGD and Colon Hernia repair, incisional hernia. NO hiatal hernia Objective - Vital Signs Vital signs: Vital Signs Temp 97.9 F 04/20/23 14:00 Pulse 65 04/20/23 14:00 Resp BP 126/86 04/20/23 14:00 Pulse Ox FiO2 Intake & Output 04/19/23 04/20/23 04/20/23 18:59 06:59 18:59 Weight 112.854 kg Assessment/Plan Plan: Date: 04/20/23 Initial Weight: 93.894 kg Initial BMI: 37.2 Current Weight: 112.854 kg Current BMI: 44.7 Type of Surgery: Total Volume in Band: Previous Volume: Volume Removed: Volume Added: Band Size:
[2023-04-20 17:04] LABS: INR 0.9 (<1.2); Partial Thromboplastin Time 22.4 sec (22.0-30.0)
[2023-04-20 19:53] LABS: Prealbumin 19.8 mg/dL (18.0-42.0)
[2023-04-20 20:33] LABS: % Iron Saturation 7.58 (12.00-45.00); Blood Urea Nitrogen 9.2 mg/dL (9.0-27.0); Chloride 107 mmol/L (96-109); Chol/HDL Ratio 3.36 Ratio; Glucose 101 mg/dL (70-110); Iron 36 UG/DL (50-170); LDL Cholesterol,Calculated 82.9 mg/dL (0.0-131.0); Magnesium 2.3 mg/dL (1.5-2.4); Phosphorus 3.3 mg/dL (2.4-5.1); Potassium 4.2 mmol/L (3.5-5.5); Sodium 143 mmol/L (135-145); Total Iron Binding Capacity 475 UG/DL (228-460)
[2023-04-20 20:34] LABS: ALT 25 U/L (8-44); AST 28 U/L (13-35); Albumin 4.4 d/dL (3.8-4.9); Alkaline Phosphatase 106 U/L (41-126); Calcium 9.2 mg/dL (8.7-10.3); Carbon Dioxide 23.9 mmol/L (21.6-31.8); Ferritin 13.3 ng/mL (10.0-291.0); Globulin 2.1 d/dL (1.6-3.3); Total Bilirubin 0.3 mg/dL (0.3-1.2); Total Protein 6.5 d/dL (6.2-8.2)
[2023-04-20 20:37] LABS: HCT 40.3 % (37.2-46.3); HGB 12.2 d/dL (12.0-15.0); MCH 24.6 pg (27.0-32.0); MCHC 30.3 d/dL (32.0-37.0); MCV 81.4 FL (80.0-97.0); Mean Platelet Volume 11.3 FL (9.5-12.2); NRBC Per 100 WBC 0 X 10*3/uL (0.00-0.01); Platelet Count 225 X 10*3/uL (140-440); RBC 4.95 X 10*6/uL (4.10-5.20); WBC 6.39 X 10*3/uL (4.50-10.00)
[2023-04-21 13:23] LABS: Zinc, Serum 98 ug/dL (60-130)
[2023-04-22 06:00] LABS: Vit B1(Thiamine) 55 ug/L (38-122)
[2023-04-22 12:27] LABS: Vitamin A 44 ug/dL (38-106)
[2023-05-04 14:49] LABS: Selenium 86 mcg/L (63-160)
== END ==
LOC: BARWHC3 13:31
PROVIDERS: ATTEND Surgery Plastic and Reconstructive Surgery
DX: E66.01 Morbid (severe) obesity due to excess calories (principal); K90.89 Other intestinal malabsorption; E89.1 Postprocedural hypoinsulinemia; K74.1 Hepatic sclerosis; N19 Unspecified kidney failure; T56.894A Toxic effect of other metals, undetermined, initial encounter; K50.90 Crohn's disease, unspecified, without complications; Z68.41 Body mass index [BMI] 40.0-44.9, adult
CPT/HCPCS: 80053; 80061; 82306; 82525; 82607; 82728; 82746; 83036; 83540; 83550; 83735; 83970; 84100; 84134; 84255; 84425; 84443; 84590; 84630; 85027; 85610; 85730; 93005; 99211

== ENCOUNTER 2023-10-14 07:50 | Day surgery (SDC) | payer BC ==
[2023-10-10 11:46] VITALS: BMI 42.0
--- NOTE | 2023-10-14 06:20 | P.GSHP ---
History of Present Illness H&P Date: 10/14/23 CHIEF COMPLAINT: Ventral hernia. HISTORY OF PRESENT ILLNESS: The patient is a 63-year-old female who presents with swelling along the abdomen for over 6 months with pain and tenderness. Findings were consistent with ventral hernia. She reports change in bowel habits as a result. She has completed cardiac risk assessment. Now she presents for further evaluation and management. PAST MEDICAL HISTORY: Please see list and reviewed. PAST SURGICAL HISTORY: Please see list and reviewed. MEDICATIONS: Please see list and reviewed. ALLERGIES: Please see list and reviewed. SOCIAL HISTORY: Please see list and reviewed. FAMILY HISTORY: No reports of Crohn disease or ulcerative colitis. REVIEW OF ORGAN SYSTEMS: CONSTITUTIONAL: No reports of fevers or chills. Has morbid obesity.. GI: Denies any blood in stools or constipation. HEENT: Denies any trouble with vision, hearing or nosebleeds. No difficulty swallowing. LYMPHATIC: The patient denies any lumps and bumps around the neck. ENDOCRINE: Denies any thyroid disorders. Denies any blood sugar glucose intolerance. RESPIRATORY: Denies pneumonia. Denies any troubles with breathing or dyspnea on exertion. CARDIOVASCULAR: Denies any chest pain, palpitations, or recent heart attacks. Has hypertensive heart disease. GENITOURINARY: Denies any blood in urine or increased urinary frequency. MUSCULOSKELETAL: Has back pain, stiffness, joint arthritis. NEUROLOGIC: Denies any numbness or tingling along the distal extremities. No seizure disorders or headaches. PSYCHIATRIC: Has depression. No suidical ideation. HEMATOLOGIC: Denies any abnormal bleeding or bruising. BREASTS: Denies any breast lumps, pain or nipple discharge. PHYSICAL EXAM: VITAL SIGNS: Stable GENERAL: Well-developed pleasant female in no acute distress. HEENT: No scleral icterus. Extraocular movements grossly intact. Moist buccal mucosa. NECK: Supple without lymphadenopathy. CHEST: Unlabored respirations. Equal bilateral excursions. CARDIOVASCULAR: Regular rate and rhythm. Distal 2+ pulses. ABDOMEN: Soft, nondistended. Tender along the abdomen. Protuberant. Hernia over 10 cm MUSCULOSKELETAL: No clubbing, cyanosis, or edema. SKIN: Well perfused. PSYCH: Alert and oriented. No focal or lateralizing signs. ASSESSMENT: 1. Ventral hernia. 2. Morbid obesity, BMI 42.1 PLAN: 1. Recommend proceeding with robotic ventral hernia repair with mesh. 2. Benefits and risks of surgical intervention was discussed including possibility of open technique. 3. DVT prophylaxis. 4. Antibiotic prophylaxis. 5. She is elevated risk with BMI over 35 and morbid obesity. 6. Nutritional assessment for BMI over 35 addressed 7. Non-narcotic pain managment reviewed. 8. Tobacco cessation and counseling performed. 9. Diabetes with strict glycemic control reviewed. Past Medical History Past Medical History: GERD/Reflux, Hypertension, Osteoarthritis (OA), Sleep Apnea/CPAP/BIPAP Additional Past Medical History / Comment(s): HX: H. Pylori, iron deficiency anemia (HX OF IRON TRANSFUSIONS), SEASONAL ALLERGIES, USES C-PAP MACHINE, BACK PAIN, ARTHRITIS NECK, JOINT PAIN History of Any Multi-Drug Resistant Organisms: None Reported Past Surgical History: Bariatric Surgery, Cholecystectomy, Joint Replacement, Uterine Ablation Additional Past Surgical History / Comment(s): 07/07/15 Lap Naima-En-Y gastric bypass, Excision benign lesion abdominal wall, lap band 2006, band removed 04/04/2015, LEFT rotator cuff surgery, right hip replacement 2022 [place], [place]. Past Anesthesia/Blood Transfusion Reactions: Motion Sickness, Postoperative Nausea & Vomiting (PONV) Additional Past Anesthesia/Blood Transfusion Reaction / Comment(s): Pt has recieved blood before without reaction. daughter= ponv Smoking Status: Never smoker - Past Family History Mother Family Medical History: Deep Vein Thrombosis (DVT) Additional Family Medical History / Comment(s): RYGB done and from pneumonia after procedure at age 51, Father Family Medical History: Cancer Additional Family Medical History / Comment(s): Father of skin cancer at the age of 72 Medications and Allergies Home Medications Medication Instructions Recorded Confirmed Type Sertraline [Zoloft] 100 mg PO DAILY 08/12/18 10/10/23 History ARIPiprazole [Abilify] 15 mg PO DAILY 03/31/23 10/10/23 History Metoprolol Succinate [Toprol XL] 100 mg PO DAILY 03/31/23 10/10/23 History buPROPion [Wellbutrin] 150 mg PO BID 03/31/23 10/10/23 History Ferrous Sulfate [Feosol] 325 mg PO DAILY 04/20/23 10/10/23 History Multivitamins, Thera [Multivitamin 1 tab PO DAILY 10/05/23 10/10/23 History (formulary)] Allergies Allergy/AdvReac Type Severity Reaction Status Date / Time No Known Allergies Allergy Verified 10/10/23 10:37
[~2023-10-14 07:50] MED LIST changes: +HYDROmorphone 0.5 MG/0.5 ML SYRINGE IVP PRN; -LACTATED RINGERS 1,000 ML IV SCH; -LIDOCAINE 1% (10MG/ML) FOR IV START INTRADERMA PRN
[2023-10-14] MEDS: LACTATED RINGERS 1,000 ML IV SCH (08:20)
[2023-10-14] MEDS: ONDANSETRON 4 MG/2 ML VIAL IVP PRN (08:25)
[2023-10-14] MEDS: DEXAMETHASONE SOD PHOSPHATE 4 MG/ML 1 ML VIAL IVP ONE (08:26)
[2023-10-14] MEDS: MELOXICAM 7.5 MG TAB PO PRN (08:32)
[2023-10-14] MEDS: ACETAMINOPHEN TAB 500 MG TAB PO PRN (08:32)
[2023-10-14 08:40] LABS: Basophils # (A) 0.1 k/uL (0-0.2); Basophils % (A) 1 %; Eosinophils # (A) 0.1 k/uL (0-0.7); Eosinophils % (A) 2 %; HCT 41.5 % (34.0-46.0); HGB 13.9 gm/dL (11.4-16.0); Lymphocytes # (A) 1.9 k/uL (1.0-4.8); Lymphocytes % (A) 33 %; MCH 28.7 pg (25.0-35.0); MCHC 33.5 g/dL (31.0-37.0); MCV 85.7 fL (80.0-100.0); Mean Platelet Volume 9.2; Monocytes # (A) 0.2 k/uL (0-1.0); Monocytes % (A) 4 %; Neutrophils # (A) 3.3 k/uL (1.3-7.7); Neutrophils % (A) 58 %; Platelet Count 184 k/uL (150-450); RBC 4.84 m/uL (3.80-5.40); RDW 15.2 % (11.5-15.5); WBC 5.7 k/uL (3.8-10.6)
[2023-10-14] MEDS: fentaNYL (PF) 50 MCG/ML 2 ML AMP IVP ONE ×2 (08:46→08:48)
[2023-10-14] MEDS: MIDAZOLAM 2 MG/2 ML VIAL IV PRN (08:46)
[2023-10-14 08:57] LABS: ALT 27 U/L (4-34); AST 32 U/L (14-36); African American GFR (CKD) >90 (>60 ml/min/1.73 sqM); Albumin 4.2 g/dL (3.5-5.0); Alkaline Phosphatase 95 U/L (38-126); Anion Gap 10 mmol/L; Blood Urea Nitrogen 10 mg/dL (7-17); Calcium 9.1 mg/dL (8.4-10.2); Carbon Dioxide 24 mmol/L (22-30); Chloride 109 mmol/L (98-107); Glucose 116 mg/dL (74-99); Non-African American GFR(CKD) >90 (>60 ml/min/1.73 sqM); Potassium 3.8 mmol/L (3.5-5.1); Sodium 143 mmol/L (137-145); Total Bilirubin 0.6 mg/dL (0.2-1.3); Total Protein 6.8 g/dL (6.3-8.2)
[2023-10-14] MEDS: HEPARIN SODIUM,PORCINE 5,000 UNIT/ML 1 ML VIAL SQ PRN (08:59)
[2023-10-14] MEDS ORDERED: DEXAMETHASONE SOD PHOSPHATE 4 MG/ML 1 ML VIAL ONE (09:16)
[2023-10-14] MEDS ORDERED: LIDOCAINE 1% INJ 10MG/ML (20 ML MDV) ONE (09:16)
[2023-10-14] MEDS ORDERED: NEOSTIGMINE 1 MG/ML 10 ML VIAL ONE (09:16)
[2023-10-14] MEDS ORDERED: GLYCOPYRROLATE 0.2 MG/ML 2 ML VIAL ONE (09:16)
[2023-10-14] MEDS ORDERED: SUCCINYLCHOLINE CHLORIDE 200 MG/10 ML VIAL IV ONE (09:16)
[2023-10-14] MEDS ORDERED: ROCURONIUM 10 MG/ML (5 ML VIAL) IV ONE (09:16)
[2023-10-14] MEDS ORDERED: ROPIVACAINE 5 MG/ML 30 ML VIAL ONE (09:16)
[2023-10-14] MEDS ORDERED: PHENYLEPHRINE-0.9% NACL SYG 1,000 MCG/10 ML SYRINGE ONE (09:16)
[2023-10-14] MEDS ORDERED: SODIUM CHLORIDE 0.9% (PF) 10 ML VIAL ONE (09:16)
[2023-10-14] MEDS ORDERED: PROPOFOL 10 MG/ML 20 ML VIAL IV ONE (09:16)
[2023-10-14] MEDS ORDERED: fentaNYL (PF) 50 MCG/ML 2 ML AMP ONE (09:16)
[2023-10-14 09:25] VITALS: RESP 16
[2023-10-14] MEDS: LIDOCAINE 1%-EPI 1:100,000 50 ML VIAL SQ ONE ×2 (09:39→09:52)
--- NOTE | 2023-10-14 09:54 | P.ANPRN ---
Procedure Note - Anesthesia - Nerve Block Performed Bilateral Erector Spinae Single Time Out Performed: Yes Date of Procedure: 10/14/23 Procedure Start Time: 08:45 Procedure Stop Time: 08:57 Location of Patient: PreOp Indication: Acute Post-Operative Pain, Requested by Surgeon Sedation Type: Sedate with meaningful contact maintained Preparation: Sterile Prep Position: Prone Needle Types: Pajunk Needle Gauge: 21 Ultrasound used to visualize needle placement: Yes Ultrasound used to observe medication spread: Yes Injectate: 0.5% Ropivacaine (see comment for volume) (Ropivacaine 0.5% 15 ml + 15 ml NS + 4 mg Dexamethasone) Blood Aspirated: No Pain Paresthesia on Injection Noted: No Resistance on Injection: Normal Image Stored and Saved: Yes Events: Uneventful and Well Tolerated
[2023-10-14] MEDS: LACTATED RINGERS 1,000 ML IV ONE (10:37)
[2023-10-14 11:33] VITALS: TEMP 98.5
[2023-10-14 13:09] VITALS: BP 128/87; PULSE 73
--- NOTE | 2023-10-14 14:49 | P.OP ---
Date of Procedure: 10/14/23 Description of Procedure: SURGEON: ROGER DUFF MD PREOPERATIVE DIAGNOSES: 1. Initial incisional hernia with incarceration, 8 cm 2. Hypertensive heart disease 3. Morbid obesity due to excess calories, BMI 44.6 4. 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 Depressive disorder 6. Obstructive sleep apnea 7. Iron deficiency anemia 8. Postop nausea vomiting POSTOPERATIVE DIAGNOSES: 1. Initial incisional hernia with incarceration epigastrium, 8 cm 2. Hypertensive heart disease 3. Morbid obesity due to excess calories, BMI 44.6 4. 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 Depressive disorder 6. Obstructive sleep apnea 7. Iron deficiency anemia 8. Postop nausea vomiting 9. Incarcerated incisional hernia, periumbilical, 2 cm 10. Small bowel intussusception, jejunojejunostomy OPERATION: 1. Robotic-assisted da Tyler Xi laparoscopic repair of initial incarcerated incisional hernia x 2, epigastrium 8 cm and periumbilical 2 cm hernia 1 cm without mesh 2. Reduction of small bowel intussusception ANESTHESIA: General with local ESTIMATED BLOOD LOSS: 5 mL. SPECIMENS: None. COMPLICATIONS: None. INDICATIONS: The patient is a 63-year-old female who presents with initial incisional hernia of the epigastrium. She has personal history of adjustable gastric band with conversion to gastric bypass with weight regain. Surgical intervention with laparoscopic versus robotic and open techniques were reviewed. Placement of mesh was also reviewed. Benefits and risks were thoroughly described. Informed consent was obtained. DESCRIPTION OF PROCEDURE: The patient was brought into the operating room and laid in supine position. After general induction, the abdomen had been prepped and draped in standard sterile fashion. Ioban draping was also placed. Prior to incision, a timeout protocol was confirmed with surgical team regarding the patient's name including procedures to be performed. The robot was primed prior to the procedure. A field block using local anesthetic was placed along hernia site including the proposed port sites. Initial incision was made with an #11 blade along the left upper quadrant. A 0 degree 5 mm laparoscopic trocar entry was performed. Diagnostic laparoscopy demonstrated an incarcerated inci sional hernia of the epigastrium. New defect of the supraumbilical area, 2 cm was identified incarceration. Three 8 mm trocars were placed along the right lateral abdominal wall. Placements of the ports were 15 cm from the target anatomy and 9 cm apart. An accessory 12 mm laparoscopic trocar was exchanged for the 5 mm trocar at the left upper quadrant. The da Tyler Xi robot was previously primed, prepped and draped then docked along the left side of the patient. I then sat at the robot Da Tyler Xi console where working arms of the robot were scissors, needle frontload driver, and graspers placed by the library services assistant. Attention was brought to the epigastrium where an incarcerated ventral hernia was identified containing fat. The incarcerated contents was reduced as the peritoneal fat was cleaned from the abdominal wall. Similarly, fascial defect of the supra umbilicus area 3 cm was cleansed with preperitoneal fat and reduced of incarcerated content. Next, hemostasis was checked with cautery. The hernia defects of the epigastrium was measured, 4 cm was oversewn using #1 VLOC with fascial imbrication 3. Similarly, supraumbilical fascial incisional hernia was oversewn with fascial medication x 3 using similar suture. With a history of gastric bypass, the small bowel was investigated from the gastric pouch proximally and distally. An active intussusception was found distal to the jejunojejunostomy and reduced. A final endoscopic imaging was obtained. All instruments and pneumoperitoneum were evacuated from the abdominal cavity. The da Tyler Xi robot was undocked from the patient. I re-scrubbed into the case for closure of incisions. At the umbilicus, the skin was oversewn with 4-0 Monocryl. An umbilical dressing using 4 x 4 and Tegaderm was placed. The incisions were reapproximated using 4-0 Monocryl in an interrupted subcuticular fashion. Exofin liquid glue was applied to the skin after cleansing the skin with normal saline and dilute hydrogen peroxide. An abdominal binder was placed. At the end of the procedure, needle, sponge, and instrument count had been verified correct by rfid technician. The patient was taken to the postanesthesia care unit in stable condition. FINDINGS: 1. Initial incarcerated umbilical hernia, 1 cm with contents of pre-peritoneal fat. Plan - Discharge Summary Discharge Rx Participant: Yes New Discharge Prescriptions: New Simethicone [Gas-X] 125 mg PO AC-TID PRN #20 capsule PRN Reason: Pain Cyclobenzaprine [Flexeril] 10 mg PO TID #30 tab Acetaminophen Tab [Tylenol Tab] 1,000 mg PO Q6HR PRN #30 tablet PRN Reason: Pain Continue Sertraline [Zoloft] 100 mg PO DAILY Metoprolol Succinate [Toprol XL] 100 mg PO DAILY Ferrous Sulfate [Iron (65 MG Elemental)] 325 mg PO DAILY ARIPiprazole [Abilify] 15 mg PO DAILY buPROPion [Wellbutrin] 150 mg PO BID Multivitamins, Thera [Multivitamin (formulary)] 1 tab PO DAILY Discharge Medication List Sertraline [Zoloft] 100 mg PO DAILY 08/12/18 [History] ARIPiprazole [Abilify] 15 mg PO DAILY 03/31/23 [History] Metoprolol Succinate [Toprol XL] 100 mg PO DAILY 03/31/23 [History] buPROPion [Wellbutrin] 150 mg PO BID 03/31/23 [History] Ferrous Sulfate [Iron (65 MG Elemental)] 325 mg PO DAILY 04/20/23 [History] Multivitamins, Thera [Multivitamin (formulary)] 1 tab PO DAILY 10/05/23 [History] Acetaminophen Tab [Tylenol Tab] 1,000 mg PO Q6HR PRN #30 tablet 10/14/23 [Rx] Cyclobenzaprine [Flexeril] 10 mg PO TID #30 tab 10/14/23 [Rx] Simethicone [Gas-X] 125 mg PO AC-TID PRN #20 capsule 10/14/23 [Rx] [facility]Ref[facility] [place] [place] [facility] [place] [facility]19[facility]23 2:00 pm Patient Instructions/Handouts: *Surgery [facility] - (Anesthesia) Discharge Instructions Outpatient Surgery, Laparoscopic Herniorrhaphy (DC), Ventral Hernia Repair (GEN) Activity/Diet/Wound Care/Special Instructions: No lifting for 4 pounds in 4 weeksNovember 11 Using antibacterial soap. May shower. No bathtub soaks for 2 weeks, October 27 Wear abdominal binder daily for comfort except for showering. Use ice along incisions for today to prevent swelling. Use Tylenol, simethicone scheduled for the next 24-48 hours for best pain relief. Discharge Disposition: HOME SELF-CARE
== END 2023-10-14 13:46 | disposition home or self-care (01) ==
LOC: OR 07:50
PROVIDERS: ATTEND Surgery Plastic and Reconstructive Surgery
DX: K43.2 Incisional hernia without obstruction or gangrene (principal); I11.9 Hypertensive heart disease without heart failure; F32.A Depression, unspecified; G47.33 Obstructive sleep apnea (adult) (pediatric); D50.9 Iron deficiency anemia, unspecified; E66.01 Morbid (severe) obesity due to excess calories; Z68.41 Body mass index [BMI] 40.0-44.9, adult; E11.9 Type 2 diabetes mellitus without complications; K21.9 Gastro-esophageal reflux disease without esophagitis; Z90.49 Acquired absence of other specified parts of digestive tract; Z98.84 Bariatric surgery status; Z79.899 Other long term (current) drug therapy
CPT/HCPCS: 64999; 86900; 86901; 80053; 85025; 86850; 49594; J2250; J0330; J1644; J1100; J2710; J0690; J2405; J2001; J3010; J2795; J2704; J2371; 88302

== ENCOUNTER → 2023-11-23 | Outpatient (CLI) | payer BC ==
[2023-11-23 13:14] VITALS: BP 162/102; PULSE 83; TEMP 98.2; BMI 43.2
[2023-11-23 15:06] LABS: INR 0.9 (<1.2); Partial Thromboplastin Time 22.9 sec (22.0-30.0); Prothrombin Time 10.1 sec (10.0-12.5)
[2023-11-23 18:55] LABS: HCT 45.2 % (37.2-46.3); HGB 14.4 g/dL (12.0-15.0); MCH 27.7 pg (27.0-32.0); MCHC 31.9 g/dL (32.0-37.0); MCV 87.1 FL (80.0-97.0); Mean Platelet Volume 11.2 FL (9.5-12.2); NRBC Per 100 WBC 0 X 10*3/uL (0.00-0.01); Platelet Count 181 X 10*3/uL (140-440); RBC 5.19 X 10*6/uL (4.10-5.20); RDW 15.5 % (11.5-14.5); WBC 6.49 X 10*3/uL (4.50-10.00)
[2023-11-23 19:19] LABS: Prealbumin 21.2 mg/dL (18.0-42.0)
[2023-11-23 19:46] LABS: % Iron Saturation 14.19 (12.00-45.00); ALT 36 U/L (8-44); AST 34 U/L (13-35); Albumin 4.5 g/dL (3.8-4.9); Albumin/Globulin Ratio 1.88 Ratio (1.60-3.17); Alkaline Phosphatase 120 U/L (41-126); BUN/Creat Ratio 15.38 Ratio (12.00-20.00); Blood Urea Nitrogen 12.3 mg/dL (9.0-27.0); Carbon Dioxide 24.2 mmol/L (21.6-31.8); Chloride 106 mmol/L (96-109); Ferritin 21.4 ng/mL (10.0-291.0); Globulin 2.4 g/dL (1.6-3.3); Glucose 104 mg/dL (70-110); Iron 67 UG/DL (50-170); Magnesium 2.2 mg/dL (1.5-2.4); Phosphorus 3.5 mg/dL (2.4-5.1); Potassium 4.1 mmol/L (3.5-5.5); Sodium 143 mmol/L (135-145); Total Bilirubin 0.4 mg/dL (0.3-1.2); Total Iron Binding Capacity 472 UG/DL (228-460); Total Protein 6.9 g/dL (6.2-8.2)
[2023-11-24 10:08] LABS: Zinc, Serum 73 ug/dL (60-130)
[2023-11-25 06:05] LABS: Vit B1(Thiamine) 65 ug/L (38-122)
[2023-11-25 07:39] LABS: Vitamin A 53 ug/dL (38-106)
[2023-11-28 07:22] LABS: Selenium 117 mcg/L (63-160)
== END ==
LOC: BARWHC3 12:30
PROVIDERS: ATTEND Surgery Plastic and Reconstructive Surgery
DX: E66.01 Morbid (severe) obesity due to excess calories (principal); K90.89 Other intestinal malabsorption; D50.8 Other iron deficiency anemias; E55.9 Vitamin D deficiency, unspecified; K74.1 Hepatic sclerosis; T56.894A Toxic effect of other metals, undetermined, initial encounter; N19 Unspecified kidney failure; K50.90 Crohn's disease, unspecified, without complications; E89.1 Postprocedural hypoinsulinemia; Z68.41 Body mass index [BMI] 40.0-44.9, adult
CPT/HCPCS: 80053; 82306; 82525; 82607; 82728; 82746; 83036; 83540; 83550; 83735; 83970; 84100; 84134; 84255; 84425; 84443; 84590; 84630; 85027; 85610; 85730; 99211

== ENCOUNTER → 2024-03-13 | Outpatient (CLI) | payer BC | END | disposition home or self-care (01) | LOC: LABWHC1 10:09 | PROVIDERS: ATTEND Surgery Plastic and Reconstructive Surgery | DX: E03.9 Hypothyroidism, unspecified (principal) | CPT/HCPCS: 36415; 84443 ==